=== PATIENT | female | born 1985 | race Caucasian/White ===

== ENCOUNTER 2019-10-30 18:48 | Outpatient (CLI) | payer OTHER ==
[2019-10-30 19:13] LABS: BASOPHILS % (AUTO) 0.9 % (0.0-2.0); EOSINOPHILS # (AUTO) 0.1 K/uL (0-0.4); EOSINOPHILS % (AUTO) 2.3 % (0.0-4.0); HEMATOCRIT 43.6 % (36-48); HEMOGLOBIN 14.5 g/dL (12.0-16.0); LYMPHOCYTES # (AUTO) 1.8 K/uL (2.5-16.5); LYMPHOCYTES % (AUTO) 32.9 % (20.5-51.1); MEAN CORPUSCULAR HEMOGLOBIN 30 pg (27-31); MEAN CORPUSCULAR HGB CONC 33 g/dL (33-37); MEAN CORPUSCULAR VOLUME 91.1 fL (80-94); MONOCYTES # (AUTO) 0.2 K/uL (0.8-1.0); MONOCYTES % (AUTO) 4.4 % (1.7-9.3); NEUTROPHILS # (AUTO) 3.2 K/uL (1.8-7.7); NEUTROPHILS % (AUTO) 59.5 % (42.2-75.2); PLATELET COUNT (AUTO) 250 K/uL (140-450); RED BLOOD CELL COUNT(AUTO) 4.78 MIL/uL (4.20-5.40); RED CELL DISTRIBUTION WIDTH 12.8 % (11.6-13.7); WHITE BLOOD COUNT (AUTO) 5.4 K/uL (4.8-10.8)
[2019-10-30 19:35] LABS: ALBUMIN 4.4 g/dL (3.4-5.0); ANION GAP 14.3 (8-16); CARBON DIOXIDE 28.6 mmol/L (21-32); CREATININE 1.1 mg/dL (0.6-1.3); POTASSIUM 3.9 mmol/L (3.5-5.1); THYROID STIMULATING HORMONE 1.24 uIU/mL (0.34-3.74); TOTAL BILIRUBIN 0.6 mg/dL (0.0-1.0)
[2019-11-01 10:07] LABS: FOLLICLE STIMULATING HORMONE 3.9 mIU/mL (.); PROLACTIN 9.2 ng/mL (4.8-23.3); T4 (THYROXINE) 7.6 ug/dL (4.5-12.0); THYROID PEROXIDASE (TPO) AB <9 IU/mL (0-34); TRIIODOTHYRONINE FREE 3.3 pg/mL (2.0-4.4)
== END 2019-10-30 20:17 | disposition home or self-care (01) ==
LOC: MLB 18:48
PROVIDERS: ATTEND Obstetrics & Gynecology
DX: N92.6 Irregular menstruation, unspecified (principal)
CPT/HCPCS: 36415; 80053; 82306; 82607; 82670; 83001; 84144; 84146; 84403; 84436; 84443; 84481; 85025; 86376

== ENCOUNTER → 2019-12-12 | Outpatient (CLI) | payer OTHER ==
[2019-12-14 08:22] LABS: T4 (THYROXINE) 7.6 ug/dL (4.5-12.0)
== END | disposition home or self-care (01) ==
LOC: MLB 19:26
PROVIDERS: ATTEND Obstetrics & Gynecology
DX: E03.9 Hypothyroidism, unspecified (principal)
CPT/HCPCS: 36415; 84436; 84443; 84481

== ENCOUNTER 2020-09-01 10:59 | Emergency (ER) | payer OTHER ==
[~2020-09-01] VITALS: Ht 157.5 cm; Wt 65.8 kg
--- NOTE | 2020-09-01 11:06 | NUR ---
Patient transferred to bed 8 via wheelchair by tech. RN evaluating the patient at bedside.
[2020-09-01 11:12] VITALS: BP 142/81
--- NOTE | 2020-09-01 11:12 | NUR ---
34 YEAR OLD FEMALE COMPLAINS OF RIGHT FOOT PAIN X 1 WEEK. PT STATES THAT OVER WEEK FOOT HAS BEEN GETTING PROGRESSIVELY WORSE. PT DENIES TRAUMA. CAP REFILL < 3 SEC, PEDAL PULSE+2, SENSATION INTACT, LIMITED ROM. SOME SWELLING NOTED. PT AOX4, BREATHING EVEN AND UNLABORED, SKIN WARM AND DRY. BED IN LOWEST POSITION, LOCKED, BED RAIL UPX1. PMH - ASTHMA ALLERGIES - NKA
--- NOTE | 2020-09-01 11:31 | NUR ---
DR EDWARDS AT BEDSIDE EVALUATING PT.
--- NOTE | 2020-09-01 11:54 | NUR ---
RAD AT BEDSIDE
[2020-09-01] MEDS ORDERED: CEPH-588 PO (13:37)
[2020-09-01 13:45] VITALS: BP 142/81
--- NOTE | 2020-09-01 13:45 | NUR ---
Patient discharged with v/s stable. Written and verbal after care instructions about foot pain given and explained. Patient alert, oriented and verbalized understanding of instructions. Ambulatory with steady gait. All questions addressed prior to discharge. ID band removed. Patient advised to follow up with PMD. Rx of keflex given. Patient educated on indication of medication including possible reaction and side effects. Opportunity to ask questions provided and answered.
== END 2020-09-01 13:45 | disposition home or self-care (01) ==
LOC: MED 10:59
DX: M79.671 Pain in right foot (principal); J45.909 Unspecified asthma, uncomplicated; Z79.899 Other long term (current) drug therapy
CPT/HCPCS: 73630; 81025; 99283